=== PATIENT | female | born 1990 | race Asian ===

== ENCOUNTER 2021-11-22 22:39 | Emergency (ER) | payer BC ==
[~2021-11-22] VITALS: Ht 172.7 cm; Wt 53.5 kg
[2021-11-22 22:46] VITALS: BP 120/67
--- NOTE | 2021-11-22 23:34 | NUR ---
PT TAKEN TO BED 6
--- NOTE | 2021-11-23 00:02 | NUR ---
Dr. Silva examining patient.
[2021-11-23] MEDS ORDERED: CEPH-588 PO (00:11)
== END 2021-11-23 00:20 | disposition home or self-care (01) ==
LOC: MED 22:39
DX: N39.0 Urinary tract infection, site not specified (principal)
CPT/HCPCS: 81002; 81025; 99283